=== PATIENT | female | born 1960 | race Two or more races ===

== ENCOUNTER 2022-05-22 13:39 | Outpatient (CLI) | payer OTHER | END 2022-05-22 23:59 | disposition home or self-care (01) | LOC: LAB 13:39 | PROVIDERS: ATTEND Student in an Organized Health Care Education/Training Program | DX: Z01.812 Encounter for preprocedural laboratory examination (principal); Z20.822 Contact with and (suspected) exposure to COVID-19 | CPT/HCPCS: U0003; C9803 ==

== ENCOUNTER 2022-05-28 05:45 | Outpatient (CLI) | payer OTHER | END 2022-05-28 23:59 | disposition home or self-care (01) | LOC: LAB 05:45 | PROVIDERS: ATTEND Student in an Organized Health Care Education/Training Program | DX: Z01.812 Encounter for preprocedural laboratory examination (principal); Z20.822 Contact with and (suspected) exposure to COVID-19 | CPT/HCPCS: U0003; C9803 ==

== ENCOUNTER 2022-06-01 10:14 | Inpatient (IN) | payer OTHER ==
[~2022-06-01] VITALS: Ht 160 cm; Wt 57.2 kg
[2022-06-01] VITALS (9 sets, daily range): BP systolic 119–145; BP diastolic 71–81
[2022-06-01] MEDS ORDERED: BUPIVACAINE 0.25% 75 MG/30 ML VIAL ONE (10:59)
[2022-06-01] MEDS ORDERED: BUPIVACAINE 0.5 % PF 150 MG/30 ML VIAL ONE (11:00)
[2022-06-01] MEDS ORDERED: GABA800T11 PO (11:10)
--- NOTE | 2022-06-01 11:20 | NUR ---
MS RN ADMITTING NOTES PT ADMITTED TO UNIT VIA WHEELCHAIR AT 1025 ACCOMPANIED BY ADMISSION STAFF FOR ORIF OF LEFT ANKLE FRACTURE BY JIM GORDON. PT IS A/O X4. ABLE TO MAKE NEEDS KNOWN. ORIENTED TO STAFF AND ROOM. PT ON ROOM AIR, TOLERATING WELL WITH NO SOB NOTED. PT WITH SHORT SPLINT ON LEFT FOOT IN PLACE. PT SIGNED ALL CONSENTS FOR THE SURGERY. IV ACCESS INSERTED TO LEFT HAND G#22. PT MAINTAIN ON NPO ORDERED. PT REFUSED PHOTOS OF SKIN ISSUES ON LEFT LOWER LEG/FOOT TO BE TAKEN BUT CONSENTED FOR OTHER SKIN ISSUES.SAFETY MEASURES IMPLEMENTED: BED IN LOWEST LOCKED POSITION JOCELYN SR -UP X2. CALL LIGHT W/I EASY REACH OF PT. PT ON BED RESTING AT THIS TIME.
--- NOTE | 2022-06-01 12:20 | NUR ---
RN NOTES PATIENT PICKED UP FOR SURGERY BY 2 [facility] FROM [facility]
[2022-06-01] MEDS ORDERED: FENTANYL PF 250MCG/5ML AMPUL ONE (12:30)
[2022-06-01] MEDS ORDERED: HYDROMORPHONE INJ 2 MG/ML DISP.SYRIN ONE (12:30)
[2022-06-01] MEDS ORDERED: MIDAZOLAM HCL 2 MG/2ML VIAL ONE (12:30)
[2022-06-01] MEDS ORDERED: ROCURONIUM BROMIDE 50 MG/5 ML ONE (12:31)
[2022-06-01] MEDS ORDERED: oxyCODONE/APAP (5/325 MG) 1 UDTAB TABLET PO PRN (16:30)
[2022-06-01] MEDS: MORPHINE SULFATE INJ 2 MG/ML DISP.SYRIN IV PRN (16:46)
--- NOTE | 2022-06-01 17:00 | NUR ---
RN NOTES PT RETURNED TO UNIT AT 1430 S/P ORIF LEFT ANKLE/LATERAL MALLEOLUS BY DR GARZA. PT IS AWAKE, A/OX4. PT ON ROOM AIR, BREATHING EVEN AND UNLABORED. DRESSING ON LEFT FOOT C/D/I COVERED WITH BLANCA BANDAGE, LEFT FOOT BOOT/BRACE IN PLACE AND ELEVATED WITH PILLOWS. PT C/O SHARP PAIN ON LEFT FOOT/ANKLE , 8/10 SCALE, PRN MORPHINE 2MG/ML IVP ADMINISTERED. ALL POST -OP ORDERS CARRIED OUT. SAFETY MEASURES MAINTAINED. PT'S DAUGHTER AT BEDSIDE AT THIS TIME.
--- NOTE | 2022-06-01 17:24 | NUR ---
RN NOTES DR EARLY MADE AWARE OF PT'S ADMISSION TO UNIT AND CAME TO SEE AND EVALUATE PT.
[2022-06-01] MEDS ORDERED: ACETAMINOPHEN 325 MG TABLET PO PRN (17:30)
[2022-06-01] MEDS ORDERED: ZOLPIDEM TARTRATE 5 MG TABLET PO PRN (17:30)
[2022-06-01] MEDS ORDERED: ONDANSETRON HCL/PF 4 MG/2 ML VIAL IVP PRN (17:30)
[2022-06-01] MEDS ORDERED: MAG HYDROX/AL HYDROX/SIMETH 30 ML UDC PO PRN (17:30)
[2022-06-01] MEDS ORDERED: MAGNESIUM HYDROXIDE 30 ML UDC PO PRN (17:30)
[2022-06-01] MEDS ORDERED: Z GUARD REMEDY 4 OZ OINT TP PRN (17:30)
--- NOTE | 2022-06-01 18:44 | NUR ---
MS RN CLOSING NOTES PT IN BED AWAKE AND RESTING AT MODERATE HIGH BACKREST POSITION. DAUGHTER PRESENT AT BEDSIDE. PT IS A/O X4. ABLE TO MAKE NEEDS KNOWN. ON ROOM AIR, TOLERATING WELL WITH NO SOB NOTED. DRESSING ON LEFT ANKLE/ FOOT C/D/I WRAPPED WITH BLANCA BANDAGE. LLE BOOT/SPLINT IN PLACE AND ELEVATED WITH PILLOWS. IV ACCESS ON LEFT HAND G#22 INTACT, PATENT AND FLUSHES WELL. ALL NEEDS AND CARE ATTENDED WELL. SAFETY MEASURES IN PLACE: BED IN LOWEST LOCKED POSITION WITH SR-UP X2. CALL LIGHT AND TRAY TABLE W/IN EASY REACH OF PT. WILL ENDORSE STEVE TO EXECUTIVE BUSINESS COACH NURSE. .
--- NOTE | 2022-06-01 19:30 | NUR ---
MS RN OPENING NOTES RECEIVED PT AWAKE IN BED WITH DAUGHTER PRESENT AT BEDSIDE. A/O X4 AND ABLE TO MAKE NEEDS KNOWN. PT STABLE ON ROOM AIR. NO SOB OR S/S OF RESPIRATORY DISTRESS. BREATHING EVEN AND UNLABORED. DRESSING ON LEFT ANKLE/ FOOT C/D/I WRAPPED WITH BLANCA BANDAGE. LLE BOOT/SPLINT IN PLACE AND ELEVATED WITH PILLOWS. IV ACCESS LEFT HAND G#22 INTACT AND PATENT. SAFETY PRECAUTIONS IN PLACE. BED IN LOWEST LOCKED POSITION, HOB ELEVATED, SIDE RAILS UP X2, AND CALL LIGHT AND TABLE WITHIN REACH. ALL NEEDS MET AT THIS TIME.
[2022-06-01] MEDS: CEFAZOLIN 1 GM in IV D5W 50 ML IV SCH (20:10)
[2022-06-01] MEDS: oxyCODONE/APAP (5/325 MG) 1 UDTAB TABLET PO PRN (21:05)
--- NOTE | 2022-06-01 21:05 | NUR ---
RN NOTE PT COMPLAINED OF PAIN 8/10 OF L ANKLE. ADMINISTERED PERCOCET 5 MG 2 TABS FOR PAIN. MADE COMFORTABLE IN BED. ALL NEEDS MET AT THIS TIME.
[2022-06-02] MEDS: MORPHINE SULFATE INJ 2 MG/ML DISP.SYRIN IV PRN ×4 (00:12→20:12)
--- NOTE | 2022-06-02 00:12 | NUR ---
RN NOTE PT COMPLAINED OF BREAKTHROUGH PAIN OF THE L ANKLE 06/17. ADMINISTERED MORPHINE 2 MG FOR SEVERE BREAKTHROUGH PAIN ORDERED. MADE COMFORTABLE IN BED. ALL NEEDS MET AT THIS TIME.
[2022-06-02] MEDS: oxyCODONE/APAP (5/325 MG) 1 UDTAB TABLET PO PRN (04:12)
[2022-06-02] MEDS: CEFAZOLIN 1 GM in IV D5W 50 ML IV SCH ×2 (04:30→13:02)
--- NOTE | 2022-06-02 06:40 | NUR ---
MS RN -CLOSING NOTES PT AWAKE IN BED. A/O X4 AND ABLE TO MAKE NEEDS KNOWN. PT STABLE ON ROOM AIR. NO SOB OR S/S OF RESPIRATORY DISTRESS. BREATHING EVEN AND UNLABORED. DRESSING ON LEFT ANKLE/ FOOT C/D/I WRAPPED WITH BLANCA BANDAGE. LLE BOOT/SPLINT IN PLACE AND ELEVATED WITH PILLOWS. IV ACCESS LEFT HAND G#22 INTACT AND PATENT. ALL DUE MEDS GIVEN ORDERED. SAFETY PRECAUTIONS IN PLACE AT ALL TIMES. BED IN LOWEST LOCKED POSITION, HOB ELEVATED, SIDE RAILS UP X2, AND CALL LIGHT AND TABLE WITHIN REACH. ALL NEEDS MET AT THIS TIME AND WILL ENDORSE TO ONCOMING NURSE FOR STEVE.
[2022-06-02 07:01] LABS: BASOPHILS % (AUTO) 0.4 % (0.0-2.0); EOSINOPHILS % (AUTO) 0.2 % (0.0-6.0); HEMATOCRIT 32 % (33-45); HEMOGLOBIN 10.9 g/dL (11.5-14.8); LYMPHOCYTES # (AUTO) 0.9 K/uL (0.8-4.8); LYMPHOCYTES % (AUTO) 7.8 % (20.0-44.0); MEAN CORPUSCULAR HGB CONC 34 g/dl (31.0-36.0); MEAN CORPUSCULAR VOLUME 88 fL (82-100); MONOCYTES # (AUTO) 0.6 K/uL (0.1-1.30); MONOCYTES % (AUTO) 5.1 % (2.0-12.0); NEUTROPHILS # (AUTO) 9.8 K/uL (1.8-8.9); NEUTROPHILS % (AUTO) 86.5 % (43.0-81.0); PLATELET COUNT (AUTO) 315 K/uL (150-450); RED BLOOD CELL COUNT(AUTO) 3.67 MIL/uL (4.0-5.2); WHITE BLOOD COUNT (AUTO) 11.3 K/uL (4.3-11.0)
[2022-06-02 07:14] LABS: CALCIUM, SERUM 8.7 mg/dL (8.5-10.1); CREATININE 0.7 mg/dL (0.6-1.3); PHOSPHORUS 3.4 mg/dL (2.5-4.9); POTASSIUM 2.9 mmol/L (3.5-5.1)
--- NOTE | 2022-06-02 07:30 | NUR ---
RN Opening Notes Pt AOx4, states no pain, other than her shingles discomfort. VSS with no signs of respiratory distress. BLANCA on left foot applied, dry, clean and intact. Pts leg is elevated. Call light within reach, bed at lowest position, all safety precautions have been implemented.l
[2022-06-02 08:00] VITALS: BP 126/69
[2022-06-02] MEDS: PANTOPRAZOLE 40 MG TABLET.DR PO SCH (08:10)
[2022-06-02] MEDS: ENOXAPARIN SODIUM 40 MG/0.4 ML DISP.SYRIN SQ SCH (08:11)
[2022-06-02] MEDS: GABAPENTIN 400 MG CAPSULE PO SCH ×3 (08:11→17:00)
[2022-06-02] MEDS ORDERED: POTASSIUM CHLORIDE 20 MEQ TAB.PRT.SR PO SCH (10:00)
--- NOTE | 2022-06-02 11:18 | NUR ---
SULEIMAN RUANO Notes Pt using foul language, requesting more pain medication, per . pt does not meet criteria. Pt requesting Dilaudid and upset that it is not given. Calling names to nurses, slamming door, walking in hallway screaming. Pts VSS and AOx4. Security on site, all precautions taken. Pt refuses to stay asking for IV line to be removed.Removed IV line and pt left with all belongings. Addendum: 06/02/22 at 1232 by MILENA WINKLER RN RN NOTE ADDENDUM WRONG PT
[2022-06-02] MEDS ORDERED: HYDR-3972 PO (12:54)
[2022-06-02] MEDS ORDERED: ASPI-992 PO (12:54)
[2022-06-02] MEDS ORDERED: ACET325T53 PO (12:54)
--- NOTE | 2022-06-02 13:30 | NUR ---
SULEIMAN RUANO Notes Pt AO4, able to express concerns, states no problems, no complications. Wants to discharge from facility and sign AMA. Pt asking for midline to be removed. Provided discharge instruction, removed line. Provided discharge documents.Pt advised to follow up with her provider in two weeks. Advised to go to nearest [facility] in case of any emergency. Walked pt to main entrance with all belongings. Addendum: 06/02/22 at 1626 by MILENA WINKLER RN Addendum... Wrong pt.
[2022-06-02 16:00] VITALS: BP 126/74
--- NOTE | 2022-06-02 18:02 | NUR ---
RN Closing Notes PT AO x4 states minimal discomfort. Pts controlled medication is pending since a pharmacy has "run the med through the insurance" Pts pharmacy of choice is [facility] in [address] . PT understands that it is best if she stays since she will not be able to picker operator med today due to traffic. Prefers to wait so can secure meds before discharge. Pt able to express concerns, VSS, bed position at lowest, call light within reach, all questions answered.
--- NOTE | 2022-06-02 19:15 | NUR ---
RN opening notes Received Pt from morning nurse. Pt is sitting in bed comfortably accompanied by family. Pt is alert and orientedX4. On room air. No SOB. No S/S of distress noted. L foot BLANCA is inplaced, clean and dry. L hand# 22 is clean, intact and SL. Safety precautions is maintained. a wheelchair at the bedside. Bed at low position, brakes locked, side rails upX2, hob elevated, bed alarm is on and call light is within reach. Will continue to monitor.
[2022-06-02 20:00] VITALS: BP 121/75
--- NOTE | 2022-06-02 20:19 | NUR ---
RN notes pt is complaining of L knee pain 10/10 on pain scale and requsting pain med. administered morphine 2 mg/iv/prn as ordered for pain. VS is stable. safety precautions is maintained. will continue to monitor.
[2022-06-03] MEDS: oxyCODONE/APAP (5/325 MG) 1 UDTAB TABLET PO PRN ×3 (02:15→14:46)
--- NOTE | 2022-06-03 02:15 | NUR ---
Rn notes Pt is complaining of pain on L ankle 8/10 on pain scale. administered percocet/2 tabs as ordered for pain. VS is stable. safety precautions is maintained. will continue to monitor.
--- NOTE | 2022-06-03 06:33 | NUR ---
RN closing notes Pt is resting in bed comfortably. Pt is alert and orientedX4. On room air. No SOB. No S/S of distress noted. Vs is stable. LLE boot/splint is inplaced, clean and dry and elevated with pillows . L hand# 22 is clean, intact and SL. Kept Pt clean, dry and comfortable. all needs met and attended. Safety precautions is maintained. Bed at low position, brakes locked, side rails upX2, hob elevated, bed alarm is on and call light is within reach. Will endorse to am nurse for STEVE.
--- NOTE | 2022-06-03 07:30 | NUR ---
RN MS NOTES PT IN BED, AWAKE, ALERT AND ORIENTED, DENIES PAIN AT THIS TIME, RESPIRATIONS NORMAL, CALL LIGHT WITHIN REACH, KEPT COMFORTABLE IN BED.
[2022-06-03 08:00] VITALS: BP 120/73
[2022-06-03] MEDS: PANTOPRAZOLE 40 MG TABLET.DR PO SCH (08:39)
[2022-06-03] MEDS: GABAPENTIN 400 MG CAPSULE PO SCH ×2 (08:39→14:32)
[2022-06-03] MEDS: ENOXAPARIN SODIUM 40 MG/0.4 ML DISP.SYRIN SQ SCH (08:40)
[2022-06-03 08:42] LABS: CALCIUM, SERUM 8.6 mg/dL (8.5-10.1); CREATININE 0.8 mg/dL (0.6-1.3); POTASSIUM 3.6 mmol/L (3.5-5.1)
[2022-06-03] MEDS ORDERED: OXYC-128 PO (12:00)
--- NOTE | 2022-06-03 14:45 | NUR ---
cloth hand Notes PT AOx4, states no complications, some light discomfort. Pt able to express concerns. Made pt and aware that per Debby at [facility] pharmacy medications should be ready at 1300. at bedside, states he will make arrangements to warehouse picker. VSS and pt stable for discharge. Removed IV line, helped pt get ready, and transferred to wheelchair, transported pt to main entrance and into the car with .
== END 2022-06-03 14:50 | disposition home health service (06) | DRG 494 ==
LOC: DS 10:14 → MED 10:16
PROVIDERS: ADMIT Student in an Organized Health Care Education/Training Program
PROC: 0QSK04Z Reposition Left Fibula with Internal Fixation Device, Open Approach (ICD-10-PCS; principal; 2022-06-01)
PROC: 0QSH04Z Reposition Left Tibia with Internal Fixation Device, Open Approach (ICD-10-PCS; 2022-06-01)
DX: S82.872A Displaced pilon fracture of left tibia, initial encounter for closed fracture (principal); Z79.899 Other long term (current) drug therapy; X58.XXXA Exposure to other specified factors, initial encounter; Y92.9 Unspecified place or not applicable; S82.832A Other fracture of upper and lower end of left fibula, initial encounter for closed fracture
CPT/HCPCS: 36415; 73600-TC; 80048-TC; 83735-TC; 84100-TC; 85025-TC; 87081-TC; 97116-TC; 97530-TC; G0378; J0690; J1170; J1650; J2250; J2270; J3010; J3490; J7060